=== PATIENT | male | born 1960 | race Caucasian/White ===

== ENCOUNTER 2016-09-26 17:42 | Emergency (ER) | payer MEDICAID ==
[~2016-09-26] VITALS: Ht 177.8 cm; Wt 72.6 kg
[2016-09-26 18:00] VITALS: BP 139/85
[2016-09-26 18:28] LABS: BASOPHILS # (AUTO) 0.1 /CMM (0.0-0.2); BASOPHILS % (AUTO) 0.5 % (0.0-2.0); EOSINOPHILS # (AUTO) 0.1 /CMM (0.0-0.7); EOSINOPHILS % (AUTO) 1.1 % (0.0-6.0); HEMATOCRIT 40 % (39-51); HEMOGLOBIN 13.4 g/dL (13.5-17.5); LYMPHOCYTES # (AUTO) 2.9 /CMM (0.8-4.8); LYMPHOCYTES % (AUTO) 26.7 % (20.0-44.0); MEAN CORPUSCULAR HEMOGLOBIN 32 PG (26.0-33.0); MEAN CORPUSCULAR HGB CONC 34 g/dl (31.0-36.0); MEAN CORPUSCULAR VOLUME 96 fL (80-96); MONOCYTES # (AUTO) 1.1 /CMM (0.1-1.30); MONOCYTES % (AUTO) 10.5 % (2.0-12.0); NEUTROPHILS # (AUTO) 6.6 /CMM (1.8-8.9); NEUTROPHILS % (AUTO) 61.2 % (43.0-81.0); PLATELET COUNT (AUTO) 415 /CMM (150-450); RDW COEFFICIENT OF VARIATION 14.1 (11.5-15.0); RED BLOOD CELL COUNT(AUTO) 4.18 MIL/uL (4.5-6.0); WHITE BLOOD COUNT (AUTO) 10.8 K/uL (4.3-11.0)
[2016-09-26 18:42] LABS: CARBON DIOXIDE 25 mmol/L (21-32); CHLORIDE 105 mmol/L (98-107); GLUCOSE 75 mg/dL (74-106); POTASSIUM 3.8 mmol/L (3.5-5.1); SODIUM SERUM 140 mmol/L (136-145); UREA NITROGEN, BLOOD 15 mg/dL (7-18)
[2016-09-26 18:48] LABS: ACETAMINOPHEN < 10 ug/ml (10-30); ALANINE AMINOTRANSFERASE 22 U/L (12-78); ALBUMIN 4.5 g/dL (3.4-5.0); ALCOHOL, BLOOD 92 mg/dL (0-0); ALKALINE PHOSPHATASE 90 U/L (46-116); ASPARTATE AMINOTRANSFERASE 20 U/L (15-37); BILIRUBIN,DIRECT 0.1 mg/dL (0.0-0.2); BILIRUBIN,TOTAL 0.5 mg/dL (0.2-1.0); SALICYLATE 5.4 mg/dL (2.8-20.0); TOTAL PROTEIN, SERUM 8.1 g/dL (6.4-8.2)
--- NOTE | 2016-09-26 19:32 | NUR ---
CALLED [facility] FOR PSYCH EVAL, ETA 1 HOUR
[2016-09-26 19:33] LABS: APPEARANCE,URINE Clear (CLEAR); BILIRUBIN,URINE SMALL (NEGATIVE); BLOOD, URINE Negative Ery/uL (NEGATIVE); COLOR,URINE Yellow (YELLOW); KETONES,URINE Negative (NEGATIVE); LEUKOCYTE ESTERASE ,URINE Negative (NEGATIVE); NITRITE, URINE Negative (NEGATIVE); PROTEIN,URINE 30 mg/dl (NEGATIVE); UGLUCOSE Negative (NEGATIVE); UROBILINOGEN,URINE 0.2 EU/dL (0.2)
[2016-09-26 19:46] LABS: BACTERIA,URINE Rare /HPF (None Seen); MUCUS,URINE Few /LPF (None Seen); RBC,URINE 0-2 /HPF (0-2); SQUAMOUS EPITHELIAL CELL,UR Rare /HPF (None Seen); WBC,URINE 0-2 /HPF (0-3)
--- NOTE | 2016-09-26 22:33 | NUR ---
PT ACCEPTED TO [facility]. ACCEPTED BY DR GARCIA. # FOR REPORT. [phone]
--- NOTE | 2016-09-26 22:36 | NUR ---
CALLED [facility] FOR TRANSPORT TO [facility], ETA [id number]
--- NOTE | 2016-09-26 23:07 | NUR ---
CALLED [facility] BACK TO PUT CALL ON WILL CALL
--- NOTE | 2016-09-27 01:28 | NUR ---
REPORT GIVEN TO [facility] FOR CONTINUATION OF CARE.
--- NOTE | 2016-09-27 04:20 | NUR ---
[facility] AT BEDSIDE FOR TRANSPORT TO [facility]
== END 2016-09-27 04:30 ==
LOC: ER 17:43
DX: R45.851 Suicidal ideations (principal); F15.10 Other stimulant abuse, uncomplicated; F12.10 Cannabis abuse, uncomplicated; E11.9 Type 2 diabetes mellitus without complications; F32.9 Major depressive disorder, single episode, unspecified; F43.10 Post-traumatic stress disorder, unspecified; Z88.0 Allergy status to penicillin; Z88.8 Allergy status to other drugs, medicaments and biological substances; Z91.018 Allergy to other foods; Z91.013 Allergy to seafood
CPT/HCPCS: 36415; 80048-TC; 80076-TC; 80305; 81000-TC; 85025-TC; A4606; G0480; Z7610

== ENCOUNTER 2016-10-17 22:09 | Emergency (ER) | payer MEDICAID ==
[~2016-10-17] VITALS: Ht 177.8 cm; Wt 74.8 kg
--- NOTE | 2016-10-17 22:32 | NUR ---
pt ambulatory w/ steady gait to , here for c/o SI w/ plans to "take all my pills." AOx4 w/ resp even & unlabored, denies any pain, denies any drug or alcohol use, no medical complaints, calm and cooperative w/ staff w/ nad noted. pt requesting for sandwich. Instruct pt to wait for peterson llamas MD.
--- NOTE | 2016-10-17 22:36 | NUR ---
pt ambulatory w/ steady gait to restroom, urine obtained & sent.
--- NOTE | 2016-10-17 22:39 | NUR ---
technical information specialist at bedside for blood draw.
[2016-10-17 22:52] LABS: BASOPHILS # (AUTO) 0.1 /CMM (0.0-0.2); BASOPHILS % (AUTO) 0.6 % (0.0-2.0); EOSINOPHILS # (AUTO) 0.1 /CMM (0.0-0.7); EOSINOPHILS % (AUTO) 0.6 % (0.0-6.0); HEMATOCRIT 39 % (39-51); HEMOGLOBIN 13.1 g/dL (13.5-17.5); LYMPHOCYTES # (AUTO) 2.3 /CMM (0.8-4.8); LYMPHOCYTES % (AUTO) 13.7 % (20.0-44.0); MEAN CORPUSCULAR HEMOGLOBIN 32 PG (26.0-33.0); MEAN CORPUSCULAR HGB CONC 34 g/dl (31.0-36.0); MEAN CORPUSCULAR VOLUME 95 fL (80-96); MONOCYTES # (AUTO) 0.8 /CMM (0.1-1.30); MONOCYTES % (AUTO) 4.7 % (2.0-12.0); NEUTROPHILS # (AUTO) 13.2 /CMM (1.8-8.9); NEUTROPHILS % (AUTO) 80.4 % (43.0-81.0); PLATELET COUNT (AUTO) 349 /CMM (150-450); RDW COEFFICIENT OF VARIATION 14.6 (11.5-15.0); RED BLOOD CELL COUNT(AUTO) 4.11 MIL/uL (4.5-6.0); WHITE BLOOD COUNT (AUTO) 16.5 K/uL (4.3-11.0)
[2016-10-17 22:55] LABS: APPEARANCE,URINE CLEAR (CLEAR); BILIRUBIN,URINE NEGATIVE (NEGATIVE); BLOOD, URINE NEGATIVE Ery/uL (NEGATIVE); COLOR,URINE YELLOW (YELLOW); KETONES,URINE NEGATIVE (NEGATIVE); LEUKOCYTE ESTERASE ,URINE NEGATIVE (NEGATIVE); NITRITE, URINE NEGATIVE (NEGATIVE); PH,URINE 5.5 (5.0-8.0); PROTEIN,URINE NEGATIVE (NEGATIVE); UGLUCOSE NEGATIVE (NEGATIVE); UROBILINOGEN,URINE 0.2 EU/dL (0.2)
[2016-10-17 23:11] LABS: CREATININE 0.8 mg/dL (0.6-1.3); POTASSIUM 3.4 mmol/L (3.5-5.1)
[2016-10-17 23:13] LABS: BILIRUBIN,DIRECT 0.1 mg/dL (0.0-0.2); BILIRUBIN,TOTAL 0.4 mg/dL (0.2-1.0); SALICYLATE 3.4 mg/dL (2.8-20.0); TOTAL PROTEIN, SERUM 7.5 g/dL (6.4-8.2)
--- NOTE | 2016-10-17 23:20 | NUR ---
CALLED [facility] FOR PSYCH EVAL, ETA WITHIN THE HOUR
--- NOTE | 2016-10-17 23:26 | NUR ---
pt resting comfortably in bed w/ resp even & unlabored, nad noted. Awaiting psych eval.
--- NOTE | 2016-10-17 23:55 | NUR ---
Art, S[employer]IOR [employer] at bedside for psych eval.
--- NOTE | 2016-10-18 00:39 | NUR ---
[place] & milk provided. pt sitting up in bed eating w/ no aspiration of food noted.
--- NOTE | 2016-10-18 01:08 | NUR ---
s/w Srini at [facility] [phone], request c/b in 10mins.
--- NOTE | 2016-10-18 01:23 | NUR ---
Patient medically cleared and discharged to [facility] on voluntary status in stable condition via taxi. Written and verbal after care instructions given. Patient verbalizes understanding of instruction.
--- NOTE | 2016-10-18 01:25 | NUR ---
Report given to Kristen bell [facility] for [place].
[2016-10-18 01:40] VITALS: BP 98/64
== END 2016-10-18 01:41 ==
LOC: ER 22:11
DX: R45.851 Suicidal ideations (principal); E11.9 Type 2 diabetes mellitus without complications; F43.10 Post-traumatic stress disorder, unspecified; F31.9 Bipolar disorder, unspecified; F17.200 Nicotine dependence, unspecified, uncomplicated; Z88.0 Allergy status to penicillin; Z88.8 Allergy status to other drugs, medicaments and biological substances; Z91.018 Allergy to other foods; Z91.010 Allergy to peanuts
CPT/HCPCS: 36415; 80048; 80076; 80305; 80329; 81001; 85025; 99285; A4606; G0480 ×2; Z7610; 81000-TC